=== PATIENT | female | born 1935 | race Caucasian/White ===

== ENCOUNTER 2017-07-05 14:16 | Inpatient (IN) | payer OTHER ==
[~2017-07-05] VITALS: Ht 157.5 cm; Wt 91.7 kg
[~2017-07-05 14:16] MED LIST: ACET-1175 PO; ACET-1256 PO; BISA10SU7 RE; CEPH500C2 PO; CHOL100010 PO; CITA10TA4 PO; CYAN500T PO; DONE10TA12 PO; LEVO50TA PO; MAGNSUS5 PO; NMN5 PO; NTRGSL/4 UT; PRT/20 PO; ROSU20TA PO; SODIENE PR; TRIA0.02 TOP; ZINC20OI TOP
--- NOTE | 2017-07-05 14:59 | EMERGENCY ROOM VISIT NOTE ---
History Report prepared by Annel: Lisandro Gutierrez Under the Supervision of: Dr. Guido Matt M.D. First contact with patient: 14:24 Stated Complaint: LETHARGIC History of Present Illness The patient is a 82 year old female who presents to the Emergency Room with complaints of constant lethargy and fevers since last night. Per the EMS, the patient is usually ambulatory, however not currently. The history is severely limited secondary to limited verbal status. Source of History: nursing staff History Limited By: other (limited verbal status) Onset: prior to arrival Position: other (global) Quality: other (lethargy) Timing: constant Review of Systems HPI is limited secondary to limited verbal status. 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 (14) Osteoporosis Nos (15) Postlaminectomy Synd Nos (16) Sepsis Surgical Problems: (1) Dementia, Unspecified, Without Behavioral Disturbance (2) History of cholecystectomy (3) History of tubal ligation (4) Tubal Ligation Status Social History Smoking Status: Never Smoker Alcohol Use: none Drug Use: none Marital Status: Housing Status: jail Occupation Status: retired Current/Historical Medications Scheduled Bisacodyl (Bisac-Evac), 10 MG RE PRN UD Cholecalciferol (Vitamin D), 1,000 INTER.UNIT PO DAILY Cyanocobalamin (Vitamin B-12), 500 MCG PO DAILY Donepezil Hydrochloride (Donepezil Hcl), 1 TAB PO HS Levothyroxine Sodium (Synthroid), 50 MCG PO DAILY Loratadine (Claritin), 10 MG PO DAILY Memantine (Namenda), 5 MG PO HS Nitroglycerin (Nitrostat), 0.4 MG UT PRN Ranitidine Hcl (Zantac), 150 MG PO DAILY Rosuvastatin Calcium (Crestor), 10 MG PO HS Scheduled PRN Acetaminophen (Tylenol), 650 MG PO Q4H PRN for MILD-SEVERE PAIN Ipratropium-Albuterol (Duoneb), 1 TREATMENT INH Q4H PRN for Shortness of Breath Sodium Phosphate/Biphosphate (Fleet Enema), 1 EA IL DAILY PRN for PRN UD Allergies Coded Allergies: No Known Allergies (Unverified , 07/05/17) Physical Exam Vital Signs Date Time Temp Pulse Resp B/P (MAP) Pulse Ox O2 Delivery O2 Flow Rate FiO2 07/05/17 19:02 38.3 07/05/17 18:30 93 07/05/17 17:04 87 18 138/76 98 Room Air 07/05/17 14:57 95 Nasal Cannula 2.0 07/05/17 14:56 93 22 123/89 95 2.0 07/05/17 14:50 95 Nasal Cannula 2.0 07/05/17 14:30 39.5 99 20 151/86 88 Room Air 07/05/17 14:28 96 Physical Exam GENERAL: Exam limited due to limited verbal status HENT: Dry mucous membranes. Normocephalic, atraumatic. Oropharynx unremarkable. EYES: Normal conjunctiva. Sclera non-icteric. NECK: Supple. No nuchal rigidity. FROM. No JVD. RESPIRATORY: Diminished lung sounds in lung steve throughout. CARDIAC: Regular rate, normal rhythm. Extremities warm and well perfused. Pulses equal. ABDOMEN: Obese. Soft, non-distended. No tenderness to palpation. No rebound or guarding. No masses. RECTAL: Deferred. MUSCULOSKELETAL: Chest examination reveals excoriations of the skin on the left breast which is non tender and not warm. The back is symmetrical on inspection without obvious abnormality. There is no CVA tenderness to palpation. No joint edema. LOWER EXTREMITIES: Mild erythema distally. No warmth or induration. Significant pain with light touch to the left keel. Calves are equal size bilaterally and non-tender. No edema. NEURO: GCS of 14. Normal sensorium. No sensory or motor deficits noted. Patient mumbles but words are understood. SKIN: No rash or jaundice noted. Medical Decision & Procedures ER Provider Diagnostic Interpretation: Radiology results as stated below per my review and radiologist interpretation: CHEST ONE VIEW PORTABLE CLINICAL HISTORY: Chest pain. Possible sepsis. COMPARISON STUDY: Chest radiograph and chest CT July 22, 2016. FINDINGS: Positioning on this exam was difficult. Lung volumes are diminished. Mild left lower lung opacity is noted. There is no lobar consolidation. Mild cardiomegaly is noted without evidence of pulmonary edema. IMPRESSION: 1. Mild left basilar opacity. Atelectasis is favored although an infectious process could appear similar. 2. Diminished lung lungs. 3. Cardiomegaly without evidence of pulmonary edema. Electronically signed by: Solis Clement M.D. 07/05/2017 3:07 PM Dictated Date/Time: 07/05/2017 3:05 PM HEAD WITHOUT CONTRAST (CT) CLINICAL HISTORY: 82 years-old Female with ams. Acute altered mental status TECHNIQUE: Multiple axial CT images of the head were obtained without contrast. A dose lowering technique was utilized adhering to the principles of ALARA. CT DOSE: 1228.53 mGy.cm COMPARISON: CT head 08/05/2014 FINDINGS: Large circumscribed homogeneous CSF attenuating extra-axial collection which appears to originate from the left middle cranial fossa is again seen suggesting an arachnoid cyst, 12.0 x 6.0 cm, stable in size from comparison again causing subfalcine herniation with 9 mm rightward midline shift, unchanged. There is associated sulcal effacement adjacent to the larger mass which is also unchanged. There is likely additional small arachnoid cyst, 2.6 x 1.4 cm abutting the falx and right frontal lobe near the vertex, unchanged. There is no acute intracranial hemorrhage or territorial ischemia. No intra-axial mass identified. There is background moderate atrophy with patchy areas of low attenuation within the cerebral hemispheres bilaterally suggesting chronic microvascular ischemic changes. Calvarium is intact. Mastoid air cells and middle ear cavities are clear. Patient motion limits evaluation of the skull base. Paranasal sinuses appear clear. Soft tissues are unremarkable. IMPRESSION: 1. No acute intracranial abnormality. Negative for hemorrhage or territorial ischemia. 2. 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 3. Background atrophy with chronic microvascular ischemic changes. The above report was generated using voice recognition software. It may contain grammatical, syntax or spelling errors. Electronically signed by: Lisandro Callahan M.D. 07/05/2017 5:02 PM Dictated Date/Time: 07/05/2017 4:56 PM Laboratory Results 07/05/17 14:40 Red Blood Count 4.40, Mean Corpuscular Volume 93.9, Mean Corpuscular Hemoglobin 30.7, Mean Corpuscular Hemoglobin Concent 32.7, Mean Platelet Volume 10.9, Neutrophils (%) (Auto) 84.2, Lymphocytes (%) (Auto) 6.5, Monocytes (%) (Auto) 8.7, Eosinophils (%) (Auto) 0.2, Basophils (%) (Auto) 0.1, Neutrophils # (Auto) 10.60, Lymphocytes # (Auto) 0.82, Monocytes # (Auto) 1.09, Eosinophils # (Auto) 0.02, Basophils # (Auto) 0.01 07/05/17 14:40 Test 07/05/17 14:40 07/05/17 14:50 07/05/17 15:24 07/05/17 17:40 White Blood Count 12.58 K/uL (4.8-10.8) Red Blood Count 4.40 M/uL (4.2-5.4) Hemoglobin 13.5 g/dL (12.0-16.0) Hematocrit 41.3 % (37-47) Mean Corpuscular Volume 93.9 fL (80-100) Mean Corpuscular Hemoglobin 30.7 pg (25-34) Mean Corpuscular Hemoglobin Concent 32.7 g/dl (32-36) Platelet Count 242 K/uL (130-400) Mean Platelet Volume 10.9 fL (7.4-10.4) Neutrophils (%) (Auto) 84.2 % Lymphocytes (%) (Auto) 6.5 % Monocytes (%) (Auto) 8.7 % Eosinophils (%) (Auto) 0.2 % Basophils (%) (Auto) 0.1 % Neutrophils # (Auto) 10.60 K/uL (1.4-6.5) Lymphocytes # (Auto) 0.82 K/uL (1.2-3.4) Monocytes # (Auto) 1.09 K/uL (0.11-0.59) Eosinophils # (Auto) 0.02 K/uL (0-0.5) Basophils # (Auto) 0.01 K/uL (0-0.2) RDW Standard Deviation 49.0 fL (36.4-46.3) RDW Coefficient of Variation 14.2 % (11.5-14.5) Immature Granulocyte % (Auto) 0.3 % Immature Granulocyte # (Auto) 0.04 K/uL (0.00-0.02) Prothrombin Time 11.7 SECONDS (9.0-12.0) Prothromb Time International Ratio 1.1 (0.9-1.1) Anion Gap 7.0 mmol/L (3-11) Est Creatinine Clear Calc Drug Dose 35.6 ml/min Estimated GFR () 44.6 Estimated GFR (Non- 38.4 BUN/Creatinine Ratio 11.9 (10-20) Calcium Level 8.4 mg/dl (8.5-10.1) Total Bilirubin 1.0 mg/dl (0.2-1) Direct Bilirubin 0.3 mg/dl (0-0.2) Aspartate Amino Transf (AST/SGOT) 28 U/L (15-37) Alanine Aminotransferase (ALT/SGPT) 20 U/L (12-78) Alkaline Phosphatase 67 U/L (45-117) Troponin I < 0.015 ng/ml (0-0.045) Pro-B-Type Natriuretic Peptide 518 pg/ml (0-1800) Total Protein 7.2 gm/dl (6.4-8.2) Albumin 2.9 gm/dl (3.4-5.0) Lipase 80 U/L (73-393) Bedside Lactic Acid Venous 1.82 mmol/L (0.90-1.70) Venous Blood pH 7.43 (7.36-7.41) Venous Blood Partial Pressure CO2 44 mmHg (38.0-50.0) Venous Blood Partial Pressure O2 36 mmHg Venous Blood HCO3 28 mmol/L Venous Blood Oxygen Saturation 67.0 % Venous Blood Base Excess 3.2 mEq/L Lactic Acid Level 1.5 mmol/L (0.4-2.0) Urine Color DK YELLOW Urine Appearance CLOUDY (CLEAR) Urine pH 6.5 (4.5-7.5) Urine Specific Ephraim 1.028 (1.000-1.030) Urine Protein 2+ (NEG) Urine Glucose (UA) NEG (NEG) Urine Ketones TRACE (NEG) Urine Occult Blood 2+ (NEG) Urine Nitrite POS (NEG) Urine Bilirubin NEG (NEG) Urine Urobilinogen NEG (NEG) Urine Leukocyte Esterase LARGE (NEG) Urine WBC (Auto) >30 /hpf (0-5) Urine RBC (Auto) 5-10 /hpf (0-4) Urine Hyaline Casts (Auto) 1-5 /lpf (0-5) Urine Epithelial Cells (Auto) 5-10 /lpf (0-5) Urine Bacteria (Auto) 2+ (NEG) Test 07/05/17 19:10 Laboratory results reviewed by me Medications Administered Medications (Trade) Dose Ordered Sig/Jada Route Start Time Stop Time Status Last Admin Dose Admin Sodium Chloride 1,000 ml @ 999 mls/hr Q1H1M STAT IV 07/05/17 16:35 07/05/17 17:35 DC 07/05/17 17:02 999 MLS/HR Piperacillin Sod/ Tazobactam Sod (Zosyn Iv) 4.5 gm NOW STAT IV 07/05/17 16:35 07/05/17 16:40 DC 07/05/17 17:03 4.5 GM Vancomycin HCl 2000 mg/Sodium Chloride 540 ml @ 200 mls/hr ONE STAT IV 07/05/17 16:35 07/05/17 19:16 DC 07/05/17 17:44 200 MLS/HR Sodium Chloride 1,000 ml @ 999 mls/hr Q1H1M STAT IV 07/05/17 17:43 07/05/17 18:43 DC 07/05/17 18:24 999 MLS/HR Sodium Chloride 500 ml @ 999 mls/hr Q31M STAT IV 07/05/17 17:43 07/05/17 18:13 DC 07/05/17 18:24 999 MLS/HR Acetaminophen 1000 mg/Empty Bag 100 ml @ 400 mls/hr NOW STAT IV 07/05/17 18:11 07/05/17 18:25 DC 07/05/17 18:43 400 MLS/HR ECG Indication: other (lethargy) Rate (beats per minute): 91 Rhythm: normal sinus Findings: no acute ischemic change, other ED Course 1424: The patient was evaluated in room A2. A complete history and physical exam was performed. 1635: Vancomycin HCl 2000mg/ Sodium Chloride 540ml @ 200mls/hr IV, Zosyn 4.5gm IV, Sodium Chloride 1000 ml @ 999 mls/hr IV 1738: I reevaluated the patient, and she was resting. 1743: Sodium Chloride 500 ml @ 999 mls/hr IV, Sodium Chloride 1000 ml @ 999 mls/ hr IV 180: I discussed the patient's case with ANGEL Spence, and she is going to evaluate the patient for further treatment. 1810: Acetaminophen 1000mg/ Empty Bag 100ml @ 400mls/hr IV Medical Decision I reviewed the patient's past medical history, medications, and the nursing notes as described above. The patient's presentation and history were concerning for sepsis, infection with urinary, pulmonary, or GI source, stroke, PE, ACS, CHF, pyelonephritis. Patient is an 82 -year-old woman with a past medical history of dementia, hypertension, hyperlipidemia, remote history of SDH who presents to the emergency department from her SNF for fevers and malaise since the evening prior per history of present illness. Arrival the patient is fatigued but follows commands, and has limited verbal ability but able to say basic cords and communicate although mumbled. GCS of 13, Otherwise lungs are diminished throughout. Patient febrile on arrival to 39.5 with heart rate in the 90s. Presentation concerning for early sepsis. Sepsis pathway was initiated. Cultures drawn. EKG unremarkable and troponin negative. Chest x-ray concerning for right upper lobe pneumonia. Leukocytosis. UA grossly positive for infection. She was given empiric antibiotics with vancomycin and Zosyn. Considering unclear baseline mental status CT head was done and was negative for any acute findings. Patient improving with IV fluids and was more alert and HR improved to 80s. Case was discussed with the medicine team will admit the patient to medicine service for further management. Head Trauma GCS Score: 14 Medication Reconcilliation Current Medication List: was personally reviewed by me Blood Pressure Screening Patient's blood pressure: Elevated blood pressure Blood pressure disposition: Elevated BP felt to be situational Consults Time Called: 1800 Consulting Physician: ANGEL Spence Returned Call: [phone] I discussed the patient's case with ANGEL Spence, and she is going to evaluate the patient for further treatment. Impression Primary Impression: Sepsis Additional Impressions: UTI (urinary tract infection) Pneumonia Critical Care I have personally spent greater than 35 minutes of critical care time in the direct management of this patient. This includes bedside care, interpretation of diagnostic studies, and testing, discussion with consultants, patient, and family members, and other required patient management activities. This 35 minutes is in excess of all separately billable procedures. Scribe Attestation The scribe's documentation has been prepared under my direction and personally reviewed by me in its entirety. I confirm that the note above accurately reflects all work, treatment, procedures, and medical decision making performed by me. Departure Information Dispostion Being Evaluated By Hospitalist Referrals Efrain Wilhelm M.D. (PCP) Problem Qualifiers
[2017-07-05 15:06] LABS: BASO % 0.1 %; BASO ABS # 0.01 K/uL (0-0.2); COMPLETE YES; EOS % 0.2 %; HEMATOCRIT 41.3 % (37-47); IG% 0.3 %; LYMPH % 6.5 %; LYMPH ABS # 0.82 K/uL (1.2-3.4); MEAN CELL VOLUME 93.9 fL (80-100); MEAN CORPUSCULAR HEMOGLOBIN 30.7 pg (25-34); MEAN CORPUSCULAR HGB CONC 32.7 g/dl (32-36); MEAN PLATELET VOLUME 10.9 fL (7.4-10.4); MONO % 8.7 %; NEUT % 84.2 %; PLATELET COUNT 242 K/uL (130-400); WHITE BLOOD COUNT 12.58 K/uL (4.8-10.8)
--- NOTE | 2017-07-05 15:08 | DIAGNOSTIC IMAGING REPORT ---
CHEST ONE VIEW PORTABLE CLINICAL HISTORY: Chest pain. Possible sepsis. COMPARISON STUDY: Chest radiograph and chest CT July 22, 2016. FINDINGS: Positioning on this exam was difficult. Lung volumes are diminished. Mild left lower lung opacity is noted. There is no lobar consolidation. Mild cardiomegaly is noted without evidence of pulmonary edema. IMPRESSION: 1. Mild left basilar opacity. Atelectasis is favored although an infectious process could appear similar. 2. Diminished lung lungs. 3. Cardiomegaly without evidence of pulmonary edema. Electronically signed by: Solis Clement M.D. 07/05/2017 3:07 PM Dictated Date/Time: 07/05/2017 3:05 PM
[2017-07-05 15:13] LABS: INR 1.1 (0.9-1.1); PROTHROMBIN TIME (PATIENT) 11.7 SECONDS (9.0-12.0)
[2017-07-05 15:23] LABS: ALT/SGPT 20 U/L (12-78); AST/SGOT 28 U/L (15-37); BLOOD UREA NITROGEN 15 mg/dl (7-18); BUN/CREATININE RATIO 11.9 (10-20); CALCIUM 8.4 mg/dl (8.5-10.1); CARBON DIOXIDE 27 mmol/L (21-32); CHLORIDE 106 mmol/L (98-107); GLUCOSE 120 mg/dl (70-99); POTASSIUM 3.9 mmol/L (3.5-5.1); SODIUM 140 mmol/L (136-145)
[2017-07-05 15:28] LABS: ALKALINE PHOSPHATASE 67 U/L (45-117)
[2017-07-05 15:44] LABS: VEN BLOOD GAS BASE EXCESS 3.2 mEq/L
[2017-07-05] MEDS ORDERED: CLR10 PO (15:53)
[2017-07-05] MEDS ORDERED: IPRASOL4 INH (15:53)
[2017-07-05] MEDS ORDERED: OXGN (15:53)
[2017-07-05] MEDS ORDERED: RANI150T3 PO (15:53)
[2017-07-05] MEDS ORDERED: VANCOMYCIN INJ 2,000 MG in SODIUM CHLORIDE 0.9% 500ML 500 ML IV STA (16:35)
[2017-07-05] MEDS ORDERED: SODIUM CHLORIDE 0.9% 1000ML 1,000 ML IV STA ×2 (16:35→17:43)
[2017-07-05] MEDS ORDERED: PIPERACILLIN/TAZOBACTAM 4.5 GM/100ML D5W IV STA (16:35)
--- NOTE | 2017-07-05 17:03 | DIAGNOSTIC IMAGING REPORT ---
HEAD WITHOUT CONTRAST (CT) CLINICAL HISTORY: 82 years-old Female with ams. Acute altered mental status TECHNIQUE: Multiple axial CT images of the head were obtained without contrast. A dose lowering technique was utilized adhering to the principles of ALARA. CT DOSE: 1228.53 mGy.cm COMPARISON: CT head 08/05/2014 FINDINGS: Large circumscribed homogeneous CSF attenuating extra-axial collection which appears to originate from the left middle cranial fossa is again seen suggesting an arachnoid cyst, 12.0 x 6.0 cm, stable in size from comparison again causing subfalcine herniation with 9 mm rightward midline shift, unchanged. There is associated sulcal effacement adjacent to the larger mass which is also unchanged. There is likely additional small arachnoid cyst, 2.6 x 1.4 cm abutting the falx and right frontal lobe near the vertex, unchanged. There is no acute intracranial hemorrhage or territorial ischemia. No intra-axial mass identified. There is background moderate atrophy with patchy areas of low attenuation within the cerebral hemispheres bilaterally suggesting chronic microvascular ischemic changes. Calvarium is intact. Mastoid air cells and middle ear cavities are clear. Patient motion limits evaluation of the skull base. Paranasal sinuses appear clear. Soft tissues are unremarkable. IMPRESSION: 1. No acute intracranial abnormality. Negative for hemorrhage or territorial ischemia. 2. 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 3. Background atrophy with chronic microvascular ischemic changes. The above report was generated using voice recognition software. It may contain grammatical, syntax or spelling errors. Electronically signed by: Lisandro Callahan M.D. 07/05/2017 5:02 PM Dictated Date/Time: 07/05/2017 4:56 PM
[2017-07-05] MEDS ORDERED: SODIUM CHLORIDE 0.9% 500ML 500 ML IV STA (17:43)
[2017-07-05 17:57] LABS: URINE APPEARANCE CLOUDY (CLEAR); URINE BILIRUBIN NEG (NEG); URINE COLOR DK YELLOW; URINE NITRITE POS (NEG); URINE PH 6.5 (4.5-7.5); URINE SPECIFIC GRAVITY 1.028 (1.000-1.030); UROBILINOGEN NEG (NEG); ZZURINE CULT IF INDIC CATH YES
[2017-07-05 18:00] LABS: MANUAL MICROSCOPIC REQUIRED? NO; REVIEW REQ? NO
[2017-07-05] MEDS ORDERED: ACETAMINOPHEN IV 1,000 MG in EMPTY BAG 0 ML IV STA (18:11)
[2017-07-05] MEDS ORDERED: ACETAMINOPHEN 325 MG TAB PO PRN (18:45)
[2017-07-05] MEDS ORDERED: ONDANSETRON INJ 2 MG/ML 2 ML VIAL IV PRN (18:45)
[2017-07-05] MEDS ORDERED: VANCOMYCIN CONSULT ACTIVE PRN (18:55)
[2017-07-05] MEDS ORDERED: PIPERACILL/TAZOBAC CONSULT ACTIVE PRN (19:00)
[2017-07-05] MEDS ORDERED: DONE1TAB11 PO (19:13)
[2017-07-05] MEDS: SODIUM CHLORIDE 0.9% 1000ML 1,000 ML IV SCH (20:03)
[2017-07-05] MEDS: MEMANTINE 5 MG TAB PO SCH (20:04)
[2017-07-05] MEDS: DONEPEZIL HCL 5 MG TAB PO SCH (20:04)
[2017-07-05] MEDS: ROSUVASTATIN CALCIUM 10 MG TAB PO SCH (20:04)
[2017-07-05 20:08] VITALS: BP 108/69; PULSE 78; TEMP 37; O2SAT 97; Ht 157.5 cm; Wt 91.7 kg
--- NOTE | 2017-07-05 20:24 | Pharmacy Progress Note ---
Pharmacy Abx Initial Consult Date of Service Jul 05, 2017. Pharmacy Dosing Scope Date of Consult: 07/05/17 Consultation requested by: Dr. Zaldivar Pharmacy is consulted to initiate vancomycin/Zosyn IV dosing therapy, order appropriate labs and adjust drug dose/frequency. Subjective The patient is a 82 year old female admitted on Jul 05, 2017 at 18:33. Objective Height (Feet): 5 Height (Inches): 2.00 Weight (Kilograms): 91.000 Vital Signs (Past 12Hrs) Vital Signs Past 12 Hours Date Time Temp Pulse Resp B/P (MAP) Pulse Ox O2 Delivery O2 Flow Rate FiO2 07/05/17 20:08 37.0 78 20 108/69 07/05/17 19:02 38.3 07/05/17 18:30 93 07/05/17 17:04 87 18 138/76 98 Room Air 07/05/17 14:57 95 Nasal Cannula 2.0 07/05/17 14:56 93 22 123/89 95 2.0 07/05/17 14:50 95 Nasal Cannula 2.0 07/05/17 14:30 39.5 99 20 151/86 88 Room Air 07/05/17 14:28 96 Lab Results (24Hrs) Laboratory Tests (24 Hours) Test 07/05/17 14:40 07/05/17 15:24 White Blood Count 12.58 K/uL (4.8-10.8) H Red Blood Count 4.40 M/uL (4.2-5.4) Hemoglobin 13.5 g/dL (12.0-16.0) Hematocrit 41.3 % (37-47) Mean Corpuscular Volume 93.9 fL (80-100) Mean Corpuscular Hemoglobin 30.7 pg (25-34) Mean Corpuscular Hemoglobin Concent 32.7 g/dl (32-36) Platelet Count 242 K/uL (130-400) Mean Platelet Volume 10.9 fL (7.4-10.4) H Neutrophils (%) (Auto) 84.2 % Lymphocytes (%) (Auto) 6.5 % Monocytes (%) (Auto) 8.7 % Eosinophils (%) (Auto) 0.2 % Basophils (%) (Auto) 0.1 % Neutrophils # (Auto) 10.60 K/uL (1.4-6.5) H Lymphocytes # (Auto) 0.82 K/uL (1.2-3.4) L Monocytes # (Auto) 1.09 K/uL (0.11-0.59) H Eosinophils # (Auto) 0.02 K/uL (0-0.5) Basophils # (Auto) 0.01 K/uL (0-0.2) Lactic Acid Level 1.5 mmol/L (0.4-2.0) Micro Results Date/Time Source Procedure Growth Status 07/05/17 14:42 Blood Blood Culture Pending Received 07/05/17 14:40 Blood Blood Culture Pending Received 07/05/17 17:40 Urine,Catheterized Urine Culture Pending Received Risk Factors for Resistance * Resident in a group home or extended-care facility Assessment & Plan Assessment 82 year old female admitted from [facility] with high fever and weakness. Possibly UTI vs HAP. Plan Zosyn/vancomycin for treatment of UTI vs HAP Vancomycin IV * Loading dose: 2000 mg (21.9 mg/kg) * Goal trough level for HAP vs UTI : 15 to 20 mcg/mL * Random level ordered for 07/06/17 * A less than traditional dose and extended dosing interval have been selected due to likelihood of drug accumulation in patient with h/o CKD. Piperacillin/tazobactam * 4.5 g bolus administered over 30 minutes, then 4.5 g IV extended infusion every 8 hours for CrCl greater than 20 mL/min * Aggressive dosing selected due to BMI 35 . Pharmacy will continue to follow and will adjust dose/frequency as necessary. Thank you.
[2017-07-05] MEDS: PIPERACILL/TAZOBAC IV 4.5 GM in DEXTROSE 5% 100ML IV SCH (20:56)
[2017-07-05] MEDS: ALBUT/IPRATROP 3MG/0.5MG NEB 3 ML VIAL INH SCH (21:01)
[2017-07-05 21:02] VITALS: PULSE 74; O2SAT 98
[2017-07-05] MEDS: HEPARIN SOD 5000 UNIT/0.5 ML CARP SQ SCH (21:50)
--- NOTE | 2017-07-05 22:39 | History and Physical ---
History & Physical Date & Time of Service: Jul 05, 2017 ~ 18:15 Chief Complaint: Altered Mental Status, Fever Primary Care Physician: Efrain Wilhelm M.D. History of Present Illness 82 year old female sent to the ED by [facility] for altered mental status and fever. History is unable to be obtained from patient due to her mental status. Per the staff at [facility], when patient woke up this morning she was more confused and lethargic. At baseline she is alert to self only and ambulates with a walker. She also had wheezing and cough and was found to be hypoxic on room air at 84%. This improved with oxygen 3L via NC. She was also febrile. No reported GI symptoms. She was sent to the ED for further evaluation. In the ER, she was hypoxic on room air at 88%, which improved with oxygen 2L via NC. WBC 12K, temp 39.4, mild tachycardia. BP stable. U/A consistent with UTI. CXR showing left base opacity. She was treated with IVF, IV Zosyn, IV Vanco, and IV Tylenol. 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 07/22/16 Status: Chronic Surgical Problems: (1) H/O shoulder surgery Permanent Comment: right Status: Chronic (2) H/O vein stripping Status: Chronic (3) History of cholecystectomy Status: Chronic (4) History of tubal ligation Status: Chronic (5) Status post breast reduction Status: Chronic Family History non contributory due to patient's advanced age Social History Smoking Status: Former Smoker Drug Use: none Housing status: alf Immunizations History of Influenza Vaccine: Yes Influenza Vaccine Date: Jul 24, 2013 History of Tetanus Vaccine?: Yes Tetanus Immunization Date: Nov 14, 2012 History of Pneumococcal: Yes Pneumococcal Date: Feb 24, 2009 Multi-Drug Resistant Organisms History of MDRO: Yes Type of MDRO: MRSA Allergies Coded Allergies: No Known Allergies (Unverified , 07/05/17) Home Medications Scheduled Bisacodyl (Bisac-Evac), 10 MG RE PRN UD Cholecalciferol (Vitamin D), 1,000 INTER.UNIT PO DAILY Cyanocobalamin (Vitamin B-12), 500 MCG PO DAILY Donepezil Hydrochloride (Donepezil Hcl), 1 TAB PO HS Levothyroxine Sodium (Synthroid), 50 MCG PO DAILY Loratadine (Claritin), 10 MG PO DAILY Memantine (Namenda), 5 MG PO HS Nitroglycerin (Nitrostat), 0.4 MG UT PRN Ranitidine Hcl (Zantac), 150 MG PO DAILY Rosuvastatin Calcium (Crestor), 10 MG PO HS Scheduled PRN Acetaminophen (Tylenol), 650 MG PO Q4H PRN for MILD-SEVERE PAIN Ipratropium-Albuterol (Duoneb), 1 TREATMENT INH Q4H PRN for Shortness of Breath Sodium Phosphate/Biphosphate (Fleet Enema), 1 EA [place] DAILY PRN for PRN UD Review of Systems unable to be completed with patient due to mental status Physical Exam Vital Signs Date Time Temp Pulse Resp B/P (MAP) Pulse Ox O2 Delivery O2 Flow Rate FiO2 07/05/17 21:02 74 18 98 Nasal Cannula 2.0 07/05/17 20:08 37.0 78 20 108/69 97 Nasal Cannula 2.0 07/05/17 19:02 38.3 07/05/17 18:30 93 07/05/17 17:04 87 18 138/76 98 Room Air 07/05/17 14:57 95 Nasal Cannula 2.0 07/05/17 14:56 93 22 123/89 95 2.0 07/05/17 14:50 95 Nasal Cannula 2.0 07/05/17 14:30 39.5 99 20 151/86 88 Room Air 07/05/17 14:28 96 General Appearance: no apparent distress (lethargic, unable to converse, responds to verbal stimuli) Head: normocephalic, atraumatic Eyes: normal inspection, sclerae normal ENT: hearing grossly normal Neck: supple, no JVD Respiratory/Chest: no respiratory distress, + decreased breath sounds Cardiovascular: regular rate, rhythm, no edema, normal peripheral pulses Abdomen/GI: normal bowel sounds, non tender, soft Extremities/Musculoskelatal: normal inspection, no calf tenderness Neurologic/Psych: + pertinent finding (lethargic, arouses to verbal stimuli, no gross focal deficits noted) Skin: normal color, warm/dry Diagnostics Laboratory Results Results Past 24 Hours Test 07/05/17 14:40 07/05/17 14:45 07/05/17 14:50 07/05/17 15:24 Range/Units White Blood Count 12.58 4.8-10.8 K/uL Red Blood Count 4.40 4.2-5.4 M/uL Hemoglobin 13.5 12.0-16.0 g/dL Hematocrit 41.3 37-47 % Mean Corpuscular Volume 93.9 80-100 fL Mean Corpuscular Hemoglobin 30.7 25-34 pg Mean Corpuscular Hemoglobin Concent 32.7 32-36 g/dl Platelet Count 242 130-400 K/uL Mean Platelet Volume 10.9 7.4-10.4 fL Neutrophils (%) (Auto) 84.2 % Lymphocytes (%) (Auto) 6.5 % Monocytes (%) (Auto) 8.7 % Eosinophils (%) (Auto) 0.2 % Basophils (%) (Auto) 0.1 % Neutrophils # (Auto) 10.60 1.4-6.5 K/uL Lymphocytes # (Auto) 0.82 1.2-3.4 K/uL Monocytes # (Auto) 1.09 0.11-0.59 K/uL Eosinophils # (Auto) 0.02 0-0.5 K/uL Basophils # (Auto) 0.01 0-0.2 K/uL RDW Standard Deviation 49.0 36.4-46.3 fL RDW Coefficient of Variation 14.2 11.5-14.5 % Immature Granulocyte % (Auto) 0.3 % Immature Granulocyte # (Auto) 0.04 0.00-0.02 K/uL Prothrombin Time 11.7 9.0-12.0 SECONDS Prothromb Time International Ratio 1.1 0.9-1.1 Sodium Level 140 136-145 mmol/L Potassium Level 3.9 3.5-5.1 mmol/L Chloride Level 106 98-107 mmol/L Carbon Dioxide Level 27 21-32 mmol/L Anion Gap 7.0 3-11 mmol/L Blood Urea Nitrogen 15 7-18 mg/dl Creatinine 1.30 0.60-1.20 mg/dl Est Creatinine Clear Calc Drug Dose 35.6 ml/min Estimated GFR () 44.6 Estimated GFR (Non- 38.4 BUN/Creatinine Ratio 11.9 10-20 Random Glucose 120 70-99 mg/dl Calcium Level 8.4 8.5-10.1 mg/dl Total Bilirubin 1.0 0.2-1 mg/dl Direct Bilirubin 0.3 0-0.2 mg/dl Aspartate Amino Transf (AST/SGOT) 28 15-37 U/L Alanine Aminotransferase (ALT/SGPT) 20 12-78 U/L Alkaline Phosphatase 67 45-117 U/L Troponin I < 0.015 0-0.045 ng/ml Pro-B-Type Natriuretic Peptide 518 0-1800 pg/ml Total Protein 7.2 6.4-8.2 gm/dl Albumin 2.9 3.4-5.0 gm/dl Lipase 80 73-393 U/L Thyroid Stimulating Hormone (TSH) 0.679 0.300-4.500 uIu/ml Bedside Lactic Acid Venous 1.80 1.82 0.90-1.70 mmol/L Venous Blood pH 7.43 7.36-7.41 Venous Blood Partial Pressure CO2 44 38.0-50.0 mmHg Venous Blood Partial Pressure O2 36 mmHg Venous Blood HCO3 28 mmol/L Venous Blood Oxygen Saturation 67.0 % Venous Blood Base Excess 3.2 mEq/L Lactic Acid Level 1.5 0.4-2.0 mmol/L Test 07/05/17 17:40 Range/Units Urine Color DK YELLOW Urine Appearance CLOUDY CLEAR Urine pH 6.5 4.5-7.5 Urine Specific [place] 1.028 1.000-1.030 Urine Protein 2+ NEG Urine Glucose (UA) NEG NEG Urine Ketones TRACE NEG Urine Occult Blood 2+ NEG Urine Nitrite POS NEG Urine Bilirubin NEG NEG Urine Urobilinogen NEG NEG Urine Leukocyte Esterase LARGE NEG Urine WBC (Auto) >30 0-5 /hpf Urine RBC (Auto) 5-10 0-4 /hpf Urine Hyaline Casts (Auto) 1-5 0-5 /lpf Urine Epithelial Cells (Auto) 5-10 0-5 /lpf Urine Bacteria (Auto) 2+ NEG Microbiology Results 07/05/17 Blood Culture, Received Pending 07/05/17 Blood Culture, Received Pending 07/05/17 Urine Culture, Received Pending Diagnostic Radiology CXR IMPRESSION: 1. Mild left basilar opacity. Atelectasis is favored although an infectious process could appear similar. 2. Diminished lung lungs. 3. Cardiomegaly without evidence of pulmonary edema. HEAD CT IMPRESSION: 1. No acute intracranial abnormality. Negative for hemorrhage or territorial ischemia. 2. 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 3. Background atrophy with chronic microvascular ischemic changes. Impression Assessment and Plan SEPSIS DUE TO UTI, HCAP METABOLIC ENCEPHALOPATHY DUE TO SEPSIS ACUTE HYPOXIC RESPIRATORY FAILURE - admit to tele - patient presenting from [facility] with altered mental status and fever; in the ED, U/A consistent with UTI and CXR showing left base opacity - WBC 12.5K, tachycardic (HR in the 90s), febrile, hypoxic; normal lactic acid, BP stable - saturating well on 2L NC; give nebs - CT head negative for acute findings - will keep NPO until more alert - s/p Vanco and Zosyn in the ED; will continue with to cover for HCAP and hx of +MRSA nasal swab - urine and blood cultures DEMENTIA - continue Aricept and Namenda HYPOTHYROIDISM - TSH WNL - continue levothyroxine DVT PROPHYLAXIS - SQ Heparin CODE STATUS - Patient is a full code without mechanical ventilation as per my discussion with patient's daughter and Kristen COPELAND. Addendum: I have seen and examined the patient and agree with the assessment and plan above. DO Guillermo DISPO - In my clinical judgment this beneficiary meets acute admission criteria, established by [facility], that includes being hospitalized through two midnights. - case management, PT/OT; expect d/c back to [facility] once medically stable VTE Prophylaxis VTE Risk Assessment Done? Y/N: Yes Risk Level: Moderate
[2017-07-06] VITALS (10 sets, daily range): BP systolic 108–131; BP diastolic 63–87; PULSE 73–94; TEMP 36.5–38; O2SAT 92–98
[2017-07-06] MEDS: LEVOTHYROXINE 50 MCG TAB PO SCH (06:00)
[2017-07-06] MEDS: SODIUM CHLORIDE 0.9% 1000ML 1,000 ML IV SCH (06:24)
[2017-07-06] MEDS: PIPERACILL/TAZOBAC IV 4.5 GM in DEXTROSE 5% 100ML IV SCH ×3 (06:24→21:13)
[2017-07-06] MEDS: HEPARIN SOD 5000 UNIT/0.5 ML CARP SQ SCH ×3 (06:25→20:31)
[2017-07-06 06:47] LABS: HEMATOCRIT 35.9 % (37-47); MEAN CELL VOLUME 94.7 fL (80-100); MEAN CORPUSCULAR HEMOGLOBIN 29.6 pg (25-34); MEAN CORPUSCULAR HGB CONC 31.2 g/dl (32-36); MEAN PLATELET VOLUME 10.7 fL (7.4-10.4); PLATELET COUNT 189 K/uL (130-400); RED BLOOD COUNT 3.79 M/uL (4.2-5.4); WHITE BLOOD COUNT 8.84 K/uL (4.8-10.8)
[2017-07-06 07:21] LABS: BUN/CREATININE RATIO 12.7 (10-20); CALCIUM 7.4 mg/dl (8.5-10.1); CREATININE 1.1 mg/dl (0.60-1.20); POTASSIUM 3.6 mmol/L (3.5-5.1)
[2017-07-06] MEDS: ALBUT/IPRATROP 3MG/0.5MG NEB 3 ML VIAL INH SCH ×4 (07:29→19:12)
--- NOTE | 2017-07-06 09:07 | Pharmacy Progress Note ---
Pharmacy Abx Dose Short Note Date of Service Jul 06, 2017. Assessment & Plan Assessment 82 year old female receiving vancomycin for treatment of HAP/UTI Day # 2 of antimicrobial therapy. Plan Vancomycin * Random level of 9.6, subtherapeutic * Start maintenance dose of 1250 mg q24- less aggressive due to possibility of accumulation with BMI > 35 * Goal trough level 15-20 mcg/mL * Trough ordered for 07/08 @ 0730 Pharmacy will continue to follow and will adjust dose/frequency as necessary. Thank you.
--- NOTE | 2017-07-06 09:14 | Progress Note ---
Internal Med Progress Note Date of Service: Jul 06, 2017. Provider Documentation: SUBJECTIVE: Seen and examined at bedside Seemed to be comfortable lying in bed Has intermittent cough Denies chest pain, SOB More alert, awake Follows simple commands OBJECTIVE: Vital Signs-as noted below Physical Exam: Vitals signs as noted above General Appearance:Obese, no apparent distress Head: normocephalic, Atraumatic Eyes: normal inspection, EOMI, PERRL Neck: supple, Trachea midline Respiratory/Chest: Normal breath sounds, CTA Cardiovascular: S1, S2, No murmur Abdomen/GI:Soft, Non tender, Bowel sounds present Extremities/Musculoskelatal:normal inspection, no edema Neurologic/Psych:grossly no focal neurological deficits Skin: normal color, warm Lab data as noted below. ASSESSMENT & PLAN: Sepsis UTI, HCAP Metabolic Encephalopathy Acute Hypoxic respiratory failure Patient presented from [facility] with AMS, fever, UA consistent with UTI and CXR showing left base opacity Leukocytosis improved Saturating well with minimal Oxygen support Wean off oxygen as able CT head negative for acute findings Continue Vanco and Zosyn Day #2 H/O positive MRSA nasal swab Blood/Urine cultures pending Clear liquid diet, advance as tolerated Dementia continue Aricept and Namenda Hypothyroidism TSH normal continue levothyroxine DVT Px SQ Heparin CODE STATUS full code without mechanical ventilation Disposition: Plan to discharge to [facility] when medically stable Vital Signs: Date Time Temp Pulse Resp B/P (MAP) Pulse Ox O2 Delivery O2 Flow Rate FiO2 07/06/17 07:32 36.7 85 18 128/83 (98) 95 07/06/17 07:29 75 18 98 Nasal Cannula 0.5 07/06/17 06:00 36.6 07/06/17 04:00 Nasal Cannula 2.0 07/06/17 03:44 37.7 76 18 108/70 (83) 97 Nasal Cannula 2.0 07/06/17 00:04 36.5 73 20 117/76 (90) 97 Nasal Cannula 2.0 07/05/17 23:59 Nasal Cannula 2.0 07/05/17 21:02 74 18 98 Nasal Cannula 2.0 07/05/17 20:08 37.0 78 20 108/69 97 Nasal Cannula 2.0 07/05/17 19:02 38.3 07/05/17 18:30 93 07/05/17 17:04 87 18 138/76 98 Room Air 07/05/17 14:57 95 Nasal Cannula 2.0 07/05/17 14:56 93 22 123/89 95 2.0 07/05/17 14:50 95 Nasal Cannula 2.0 07/05/17 14:30 39.5 99 20 151/86 88 Room Air 07/05/17 14:28 96 Lab Results: Results Past 24 Hours Test 07/05/17 14:40 07/05/17 14:45 07/05/17 14:50 07/05/17 15:24 Range/Units White Blood Count 12.58 4.8-10.8 K/uL Red Blood Count 4.40 4.2-5.4 M/uL Hemoglobin 13.5 12.0-16.0 g/dL Hematocrit 41.3 37-47 % Mean Corpuscular Volume 93.9 80-100 fL Mean Corpuscular Hemoglobin 30.7 25-34 pg Mean Corpuscular Hemoglobin Concent 32.7 32-36 g/dl Platelet Count 242 130-400 K/uL Mean Platelet Volume 10.9 7.4-10.4 fL Neutrophils (%) (Auto) 84.2 % Lymphocytes (%) (Auto) 6.5 % Monocytes (%) (Auto) 8.7 % Eosinophils (%) (Auto) 0.2 % Basophils (%) (Auto) 0.1 % Neutrophils # (Auto) 10.60 1.4-6.5 K/uL Lymphocytes # (Auto) 0.82 1.2-3.4 K/uL Monocytes # (Auto) 1.09 0.11-0.59 K/uL Eosinophils # (Auto) 0.02 0-0.5 K/uL Basophils # (Auto) 0.01 0-0.2 K/uL RDW Standard Deviation 49.0 36.4-46.3 fL RDW Coefficient of Variation 14.2 11.5-14.5 % Immature Granulocyte % (Auto) 0.3 % Immature Granulocyte # (Auto) 0.04 0.00-0.02 K/uL Prothrombin Time 11.7 9.0-12.0 SECONDS Prothromb Time International Ratio 1.1 0.9-1.1 Sodium Level 140 136-145 mmol/L Potassium Level 3.9 3.5-5.1 mmol/L Chloride Level 106 98-107 mmol/L Carbon Dioxide Level 27 21-32 mmol/L Anion Gap 7.0 3-11 mmol/L Blood Urea Nitrogen 15 7-18 mg/dl Creatinine 1.30 0.60-1.20 mg/dl Est Creatinine Clear Calc Drug Dose 35.6 ml/min Estimated GFR () 44.6 Estimated GFR (Non- 38.4 BUN/Creatinine Ratio 11.9 10-20 Random Glucose 120 70-99 mg/dl Calcium Level 8.4 8.5-10.1 mg/dl Total Bilirubin 1.0 0.2-1 mg/dl Direct Bilirubin 0.3 0-0.2 mg/dl Aspartate Amino Transf (AST/SGOT) 28 15-37 U/L Alanine Aminotransferase (ALT/SGPT) 20 12-78 U/L Alkaline Phosphatase 67 45-117 U/L Troponin I < 0.015 0-0.045 ng/ml Pro-B-Type Natriuretic Peptide 518 0-1800 pg/ml Total Protein 7.2 6.4-8.2 gm/dl Albumin 2.9 3.4-5.0 gm/dl Lipase 80 73-393 U/L Thyroid Stimulating Hormone (TSH) 0.679 0.300-4.500 uIu/ml Bedside Lactic Acid Venous 1.80 1.82 0.90-1.70 mmol/L Venous Blood pH 7.43 7.36-7.41 Venous Blood Partial Pressure CO2 44 38.0-50.0 mmHg Venous Blood Partial Pressure O2 36 mmHg Venous Blood HCO3 28 mmol/L Venous Blood Oxygen Saturation 67.0 % Venous Blood Base Excess 3.2 mEq/L Lactic Acid Level 1.5 0.4-2.0 mmol/L Test 07/05/17 17:40 07/06/17 05:50 Range/Units Urine Color DK YELLOW Urine Appearance CLOUDY CLEAR Urine pH 6.5 4.5-7.5 Urine Specific [place] 1.028 1.000-1.030 Urine Protein 2+ NEG Urine Glucose (UA) NEG NEG Urine Ketones TRACE NEG Urine Occult Blood 2+ NEG Urine Nitrite POS NEG Urine Bilirubin NEG NEG Urine Urobilinogen NEG NEG Urine Leukocyte Esterase LARGE NEG Urine WBC (Auto) >30 0-5 /hpf Urine RBC (Auto) 5-10 0-4 /hpf Urine Hyaline Casts (Auto) 1-5 0-5 /lpf Urine Epithelial Cells (Auto) 5-10 0-5 /lpf Urine Bacteria (Auto) 2+ NEG White Blood Count 8.84 4.8-10.8 K/uL Red Blood Count 3.79 4.2-5.4 M/uL Hemoglobin 11.2 12.0-16.0 g/dL Hematocrit 35.9 37-47 % Mean Corpuscular Volume 94.7 80-100 fL Mean Corpuscular Hemoglobin 29.6 25-34 pg Mean Corpuscular Hemoglobin Concent 31.2 32-36 g/dl RDW Standard Deviation 50.2 36.4-46.3 fL RDW Coefficient of Variation 14.5 11.5-14.5 % Platelet Count 189 130-400 K/uL Mean Platelet Volume 10.7 7.4-10.4 fL Sodium Level 143 136-145 mmol/L Potassium Level 3.6 3.5-5.1 mmol/L Chloride Level 112 98-107 mmol/L Carbon Dioxide Level 26 21-32 mmol/L Anion Gap 5.0 3-11 mmol/L Blood Urea Nitrogen 14 7-18 mg/dl Creatinine 1.10 0.60-1.20 mg/dl Est Creatinine Clear Calc Drug Dose 42.9 ml/min Estimated GFR () 54.5 Estimated GFR (Non- 47.0 BUN/Creatinine Ratio 12.7 10-20 Random Glucose 90 70-99 mg/dl Calcium Level 7.4 8.5-10.1 mg/dl Random Vancomycin Level 9.6 mcg/ml Microbiology Results 07/05/17 Blood Culture, Received Pending 07/05/17 Blood Culture, Received Pending 07/05/17 Urine Culture, Received Pending
[2017-07-06] MEDS: CHOLECALCIFEROL 1000 INTER.UNIT TAB PO SCH (09:25)
[2017-07-06] MEDS: RANITIDINE HCL 150 MG TAB PO SCH (09:25)
[2017-07-06] MEDS: CYANOCOBALAMIN 500 MCG TAB (VIT B-12) PO SCH (09:25)
[2017-07-06] MEDS: LORATADINE 10 MG TAB PO SCH (09:25)
[2017-07-06] MEDS: VANCOMYCIN INJ 1,250 MG in SODIUM CHLORIDE 0.9% 250ML 250 ML IV SCH (10:27)
[2017-07-06] MEDS: MEMANTINE 5 MG TAB PO SCH (20:29)
[2017-07-06] MEDS: DONEPEZIL HCL 5 MG TAB PO SCH (20:29)
[2017-07-06] MEDS: ROSUVASTATIN CALCIUM 10 MG TAB PO SCH (20:29)
[2017-07-07] VITALS (9 sets, daily range): BP systolic 109–174; BP diastolic 64–81; PULSE 67–87; TEMP 36.8–37; O2SAT 91–98
[2017-07-07] MEDS: SODIUM CHLORIDE 0.9% 1000ML 1,000 ML IV SCH (05:16)
[2017-07-07] MEDS: LEVOTHYROXINE 50 MCG TAB PO SCH (05:44)
[2017-07-07] MEDS: PIPERACILL/TAZOBAC IV 4.5 GM in DEXTROSE 5% 100ML IV SCH ×3 (05:44→21:45)
[2017-07-07] MEDS: HEPARIN SOD 5000 UNIT/0.5 ML CARP SQ SCH ×3 (05:45→21:11)
[2017-07-07 06:18] LABS: BASO % 0.3 %; BASO ABS # 0.02 K/uL (0-0.2); COMPLETE YES; EOS % 3.6 %; HEMATOCRIT 33.8 % (37-47); IG% 0.3 %; LYMPH % 15.2 %; LYMPH ABS # 0.94 K/uL (1.2-3.4); MEAN CELL VOLUME 93.4 fL (80-100); MEAN CORPUSCULAR HEMOGLOBIN 29.3 pg (25-34); MEAN CORPUSCULAR HGB CONC 31.4 g/dl (32-36); MEAN PLATELET VOLUME 10.8 fL (7.4-10.4); MONO % 13.3 %; NEUT % 67.3 %; PLATELET COUNT 215 K/uL (130-400); RED BLOOD COUNT 3.62 M/uL (4.2-5.4); WHITE BLOOD COUNT 6.18 K/uL (4.8-10.8)
[2017-07-07 06:48] LABS: BUN/CREATININE RATIO 9.2 (10-20); CALCIUM 7.3 mg/dl (8.5-10.1); POTASSIUM 3.3 mmol/L (3.5-5.1)
[2017-07-07] MEDS: ALBUT/IPRATROP 3MG/0.5MG NEB 3 ML VIAL INH SCH ×4 (07:10→18:54)
[2017-07-07] MEDS: VANCOMYCIN INJ 1,250 MG in SODIUM CHLORIDE 0.9% 250ML 250 ML IV SCH (08:16)
[2017-07-07] MEDS: LORATADINE 10 MG TAB PO SCH (09:12)
[2017-07-07] MEDS: RANITIDINE HCL 150 MG TAB PO SCH (09:12)
[2017-07-07] MEDS: CYANOCOBALAMIN 500 MCG TAB (VIT B-12) PO SCH (09:12)
[2017-07-07] MEDS: CHOLECALCIFEROL 1000 INTER.UNIT TAB PO SCH (09:12)
--- NOTE | 2017-07-07 10:41 | Progress Note ---
Internal Med Progress Note Date of Service: Jul 07, 2017. Provider Documentation: SUBJECTIVE: Seen and examined at bedside More alert, awake Has intermittent cough Denies chest pain, SOB, abd pain, dizziness No other complaints OBJECTIVE: Vital Signs-as noted below Physical Exam: Vitals signs as noted above General Appearance:Obese, no apparent distress Head: normocephalic, Atraumatic Eyes: normal inspection, EOMI, PERRL Neck: supple, Trachea midline Respiratory/Chest: Normal breath sounds, CTA Cardiovascular: S1, S2, No murmur Abdomen/GI:Soft, Non tender, Bowel sounds present Extremities/Musculoskelatal:normal inspection, no edema Neurologic/Psych:grossly no focal neurological deficits Skin: normal color, warm Lab data as noted below. ASSESSMENT & PLAN: Sepsis UTI, HCAP Metabolic Encephalopathy: resolved Acute Hypoxic respiratory failure: resolved Patient presented from [facility] with AMS, fever, UA consistent with UTI and CXR showing left base opacity Leukocytosis resolved Saturating well on room air CT head negative for acute findings Continue Vanco and Zosyn Day # 3 H/O positive MRSA nasal swab Blood culture: No growth Urine culture: Proteus Hypokalemia: Will replace and monitor Dementia continue Aricept and Namenda Hypothyroidism TSH normal continue levothyroxine DVT Px SQ Heparin CODE STATUS full code without mechanical ventilation Disposition: Plan to discharge to [facility] when medically stable Vital Signs: Date Time Temp Pulse Resp B/P (MAP) Pulse Ox O2 Delivery O2 Flow Rate FiO2 07/07/17 08:03 36.8 72 18 129/64 (85) 96 07/07/17 08:00 Room Air 07/07/17 07:35 72 16 93 Room Air 07/07/17 04:00 Room Air 07/07/17 03:23 36.8 78 20 109/72 (84) 94 Room Air 07/06/17 23:59 Room Air 07/06/17 23:29 36.7 73 18 108/69 (82) 96 Room Air 07/06/17 20:00 Room Air 07/06/17 19:22 37.3 85 20 124/79 (94) 93 Room Air 07/06/17 19:13 83 16 93 Room Air 07/06/17 16:00 Nasal Cannula 07/06/17 15:54 78 16 94 Room Air 07/06/17 15:54 38.0 94 20 131/87 (102) 92 Room Air 07/06/17 12:00 Nasal Cannula 2.0 07/06/17 11:38 36.9 85 16 118/63 (81) 95 Lab Results: Results Past 24 Hours Test 07/07/17 05:38 Range/Units White Blood Count 6.18 4.8-10.8 K/uL Red Blood Count 3.62 4.2-5.4 M/uL Hemoglobin 10.6 12.0-16.0 g/dL Hematocrit 33.8 37-47 % Mean Corpuscular Volume 93.4 80-100 fL Mean Corpuscular Hemoglobin 29.3 25-34 pg Mean Corpuscular Hemoglobin Concent 31.4 32-36 g/dl Platelet Count 215 130-400 K/uL Mean Platelet Volume 10.8 7.4-10.4 fL Neutrophils (%) (Auto) 67.3 % Lymphocytes (%) (Auto) 15.2 % Monocytes (%) (Auto) 13.3 % Eosinophils (%) (Auto) 3.6 % Basophils (%) (Auto) 0.3 % Neutrophils # (Auto) 4.16 1.4-6.5 K/uL Lymphocytes # (Auto) 0.94 1.2-3.4 K/uL Monocytes # (Auto) 0.82 0.11-0.59 K/uL Eosinophils # (Auto) 0.22 0-0.5 K/uL Basophils # (Auto) 0.02 0-0.2 K/uL RDW Standard Deviation 48.5 36.4-46.3 fL RDW Coefficient of Variation 14.2 11.5-14.5 % Immature Granulocyte % (Auto) 0.3 % Immature Granulocyte # (Auto) 0.02 0.00-0.02 K/uL Sodium Level 143 136-145 mmol/L Potassium Level 3.3 3.5-5.1 mmol/L Chloride Level 110 98-107 mmol/L Carbon Dioxide Level 27 21-32 mmol/L Anion Gap 6.0 3-11 mmol/L Blood Urea Nitrogen 9 7-18 mg/dl Creatinine 1.00 0.60-1.20 mg/dl Est Creatinine Clear Calc Drug Dose 47.1 ml/min Estimated GFR () 61.2 Estimated GFR (Non- 52.8 BUN/Creatinine Ratio 9.2 10-20 Random Glucose 86 70-99 mg/dl Calcium Level 7.3 8.5-10.1 mg/dl
[2017-07-07] MEDS ORDERED: POTASSIUM CHLORIDE 10 MEQ TABCR PO ONE (10:45)
[2017-07-07] MEDS: DONEPEZIL HCL 5 MG TAB PO SCH (21:12)
[2017-07-07] MEDS: ROSUVASTATIN CALCIUM 10 MG TAB PO SCH (21:12)
[2017-07-07] MEDS: MEMANTINE 5 MG TAB PO SCH (21:12)
[2017-07-08] VITALS (12 sets, daily range): BP systolic 110–139; BP diastolic 72–86; PULSE 66–79; TEMP 36.6–36.9; O2SAT 93–99
[2017-07-08] MEDS: SODIUM CHLORIDE 0.9% 1000ML 1,000 ML IV SCH (05:27)
[2017-07-08] MEDS: PIPERACILL/TAZOBAC IV 4.5 GM in DEXTROSE 5% 100ML IV SCH ×3 (05:28→21:48)
[2017-07-08] MEDS: HEPARIN SOD 5000 UNIT/0.5 ML CARP SQ SCH ×3 (05:44→21:45)
[2017-07-08] MEDS: LEVOTHYROXINE 50 MCG TAB PO SCH (05:54)
[2017-07-08] MEDS: ALBUT/IPRATROP 3MG/0.5MG NEB 3 ML VIAL INH SCH ×4 (06:58→19:07)
[2017-07-08] MEDS ORDERED: VANCOMYCIN TROUGH ONE (07:30)
[2017-07-08 07:37] LABS: MEAN CELL VOLUME 93.6 fL (80-100); MEAN CORPUSCULAR HEMOGLOBIN 29.9 pg (25-34); MEAN PLATELET VOLUME 9.8 fL (7.4-10.4); PLATELET COUNT 247 K/uL (130-400); RED BLOOD COUNT 3.74 M/uL (4.2-5.4); WHITE BLOOD COUNT 5.75 K/uL (4.8-10.8)
[2017-07-08 08:05] LABS: BUN/CREATININE RATIO 5.9 (10-20); CALCIUM 8.2 mg/dl (8.5-10.1); CREATININE 0.83 mg/dl (0.60-1.20); POTASSIUM 3.6 mmol/L (3.5-5.1)
[2017-07-08] MEDS: LORATADINE 10 MG TAB PO SCH (09:22)
[2017-07-08] MEDS: RANITIDINE HCL 150 MG TAB PO SCH (09:22)
[2017-07-08] MEDS: VANCOMYCIN INJ 1,250 MG in SODIUM CHLORIDE 0.9% 250ML 250 ML IV SCH (09:22)
[2017-07-08] MEDS: CYANOCOBALAMIN 500 MCG TAB (VIT B-12) PO SCH (09:23)
[2017-07-08] MEDS: CHOLECALCIFEROL 1000 INTER.UNIT TAB PO SCH (09:23)
--- NOTE | 2017-07-08 10:31 | Progress Note ---
Internal Med Progress Note Date of Service: Jul 08, 2017. Provider Documentation: SUBJECTIVE: Seen and examined at bedside States feeling well Mental status seems to be back to baseline Denies chest pain, SOB, abd pain, dizziness No other complaints OBJECTIVE: Vital Signs-as noted below Physical Exam: Vitals signs as noted above General Appearance:Obese, no apparent distress Head: normocephalic, Atraumatic Eyes: normal inspection, EOMI, PERRL Neck: supple, Trachea midline Respiratory/Chest: Normal breath sounds, CTA Cardiovascular: S1, S2, No murmur Abdomen/GI:Soft, Non tender, Bowel sounds present Extremities/Musculoskelatal:normal inspection, no edema Neurologic/Psych:grossly no focal neurological deficits Skin: normal color, warm Lab data as noted below. ASSESSMENT & PLAN: Sepsis UTI, HCAP Metabolic Encephalopathy: resolved Acute Hypoxic respiratory failure: resolved Patient presented from [facility] with AMS, fever, UA consistent with UTI and CXR showing left base opacity Leukocytosis resolved Saturating well on room air CT head negative for acute findings Continue Vanco day # 3 and Zosyn Day # 4 DC Vanco H/O positive MRSA nasal swab Blood culture: No growth Urine culture: Proteus: pansensitive Hypokalemia: monitor Dementia continue Aricept and Namenda Hypothyroidism TSH normal continue levothyroxine DVT Px SQ Heparin CODE STATUS full code without mechanical ventilation Disposition: Plan to discharge to [facility] when medically stable Vital Signs: Date Time Temp Pulse Resp B/P (MAP) Pulse Ox O2 Delivery O2 Flow Rate FiO2 07/08/17 08:00 Room Air 07/08/17 07:38 36.9 74 17 124/75 (91) 93 Room Air 07/08/17 07:26 79 16 93 Room Air 07/08/17 04:00 Room Air 07/08/17 04:00 36.8 73 19 139/86 (103) 96 Nasal Cannula 07/08/17 00:00 36.9 70 19 120/77 (91) 96 Room Air 07/07/17 23:59 Room Air 07/07/17 20:00 Room Air 07/07/17 19:30 37.0 77 20 174/80 (111) 98 Room Air 07/07/17 18:55 71 16 91 Room Air 07/07/17 16:00 Room Air 07/07/17 15:53 36.8 74 20 138/81 (100) 95 Room Air 07/07/17 14:37 87 16 94 Room Air 07/07/17 12:00 Room Air 07/07/17 11:20 67 16 94 Room Air 07/07/17 11:12 36.8 72 18 117/73 (88) 98 Lab Results: Results Past 24 Hours Test 07/08/17 07:18 Range/Units White Blood Count 5.75 4.8-10.8 K/uL Red Blood Count 3.74 4.2-5.4 M/uL Hemoglobin 11.2 12.0-16.0 g/dL Hematocrit 35.0 37-47 % Mean Corpuscular Volume 93.6 80-100 fL Mean Corpuscular Hemoglobin 29.9 25-34 pg Mean Corpuscular Hemoglobin Concent 32.0 32-36 g/dl RDW Standard Deviation 48.1 36.4-46.3 fL RDW Coefficient of Variation 14.1 11.5-14.5 % Platelet Count 247 130-400 K/uL Mean Platelet Volume 9.8 7.4-10.4 fL Sodium Level 143 136-145 mmol/L Potassium Level 3.6 3.5-5.1 mmol/L Chloride Level 111 98-107 mmol/L Carbon Dioxide Level 25 21-32 mmol/L Anion Gap 7.0 3-11 mmol/L Blood Urea Nitrogen 5 7-18 mg/dl Creatinine 0.83 0.60-1.20 mg/dl Est Creatinine Clear Calc Drug Dose 56.0 ml/min Estimated GFR () 76.6 Estimated GFR (Non- 66.1 BUN/Creatinine Ratio 5.9 10-20 Random Glucose 92 70-99 mg/dl Calcium Level 8.2 8.5-10.1 mg/dl Vancomycin Level Trough 8.7 SEE COMMENT mcg/ml
[2017-07-08] MEDS: DONEPEZIL HCL 5 MG TAB PO SCH (21:46)
[2017-07-08] MEDS: ROSUVASTATIN CALCIUM 10 MG TAB PO SCH (21:47)
[2017-07-08] MEDS: MEMANTINE 5 MG TAB PO SCH (21:48)
[2017-07-09] VITALS (9 sets, daily range): BP systolic 107–112; BP diastolic 69–74; PULSE 62–72; TEMP 36.8–37.5; O2SAT 91–97
[2017-07-09] MEDS: PIPERACILL/TAZOBAC IV 4.5 GM in DEXTROSE 5% 100ML IV SCH ×3 (06:20→20:52)
[2017-07-09] MEDS: LEVOTHYROXINE 50 MCG TAB PO SCH (06:21)
[2017-07-09] MEDS: HEPARIN SOD 5000 UNIT/0.5 ML CARP SQ SCH ×3 (06:25→22:09)
[2017-07-09 06:40] LABS: CALCIUM 8.2 mg/dl (8.5-10.1); CREATININE 0.96 mg/dl (0.60-1.20); POTASSIUM 3.3 mmol/L (3.5-5.1)
[2017-07-09] MEDS: ALBUT/IPRATROP 3MG/0.5MG NEB 3 ML VIAL INH SCH ×3 (07:04→19:26)
[2017-07-09] MEDS: CYANOCOBALAMIN 500 MCG TAB (VIT B-12) PO SCH (10:21)
[2017-07-09] MEDS: LORATADINE 10 MG TAB PO SCH (10:21)
[2017-07-09] MEDS: RANITIDINE HCL 150 MG TAB PO SCH (10:22)
[2017-07-09] MEDS: CHOLECALCIFEROL 1000 INTER.UNIT TAB PO SCH (10:22)
[2017-07-09] MEDS ORDERED: POTASSIUM CHLORIDE 10 MEQ TABCR PO ONE (12:45)
--- NOTE | 2017-07-09 12:55 | Progress Note ---
Internal Med Progress Note Date of Service: Jul 09, 2017. Provider Documentation: SUBJECTIVE: Seen and examined at bedside Currently having lunch Reports some abdominal discomfort Had no BM today Denies chest pain, SOB, abd pain, dizziness No other complaints OBJECTIVE: Vital Signs-as noted below Physical Exam: Vitals signs as noted above General Appearance:Obese, no apparent distress Head: normocephalic, Atraumatic Eyes: normal inspection, EOMI, PERRL Neck: supple, Trachea midline Respiratory/Chest: Normal breath sounds, CTA Cardiovascular: S1, S2, No murmur Abdomen/GI:Soft, Non tender, Bowel sounds present Extremities/Musculoskelatal:normal inspection, no edema Neurologic/Psych:grossly no focal neurological deficits Skin: normal color, warm Lab data as noted below. ASSESSMENT & PLAN: Sepsis UTI, HCAP Metabolic Encephalopathy: resolved Acute Hypoxic respiratory failure: resolved Patient presented from [facility] with AMS, fever, UA consistent with UTI and CXR showing left base opacity Leukocytosis resolved Saturating well on room air CT head negative for acute findings Continue Vanco day # 3 and Zosyn Day # 5>> Plan to switch to PO tomorrow DC Vanco H/O positive MRSA nasal swab Blood culture: No growth Urine culture: Proteus: pansensitive Hypokalemia: replace and monitor Dementia continue Aricept and Namenda Hypothyroidism TSH normal continue levothyroxine Abdominal discomfort: Likely constipation PRN Miralax DVT Px SQ Heparin CODE STATUS full code without mechanical ventilation Disposition: Plan to discharge to [facility] when medically stable Vital Signs: Date Time Temp Pulse Resp B/P (MAP) Pulse Ox O2 Delivery O2 Flow Rate FiO2 07/09/17 11:37 37.2 65 18 108/72 (84) 94 07/09/17 10:09 Room Air 07/09/17 07:39 36.9 68 20 107/73 (84) 07/09/17 07:07 62 16 94 Room Air 07/09/17 05:00 36.9 72 18 112/74 (87) 93 Room Air 07/09/17 00:40 Room Air 07/08/17 23:28 36.7 76 18 110/80 (90) 93 Room Air 07/08/17 19:48 36.7 75 20 126/82 (97) 99 Room Air 07/08/17 19:40 Room Air 07/08/17 19:07 68 16 94 Room Air 07/08/17 15:07 36.7 74 20 119/79 (92) 98 Room Air 07/08/17 14:19 72 16 95 Room Air Lab Results: Results Past 24 Hours Test 07/09/17 05:22 Range/Units Sodium Level 144 136-145 mmol/L Potassium Level 3.3 3.5-5.1 mmol/L Chloride Level 111 98-107 mmol/L Carbon Dioxide Level 27 21-32 mmol/L Anion Gap 6.0 3-11 mmol/L Blood Urea Nitrogen 5 7-18 mg/dl Creatinine 0.96 0.60-1.20 mg/dl Est Creatinine Clear Calc Drug Dose 48.4 ml/min Estimated GFR () 64.3 Estimated GFR (Non- 55.5 BUN/Creatinine Ratio 5.0 10-20 Random Glucose 87 70-99 mg/dl Calcium Level 8.2 8.5-10.1 mg/dl
[2017-07-09] MEDS ORDERED: POLYETHYLENE (MIRALAX) 17 GM PACK PO PRN (13:00)
[2017-07-09] MEDS: ROSUVASTATIN CALCIUM 10 MG TAB PO SCH (20:32)
[2017-07-09] MEDS: MEMANTINE 5 MG TAB PO SCH (20:32)
[2017-07-09] MEDS: DONEPEZIL HCL 5 MG TAB PO SCH (20:32)
[2017-07-10] VITALS (8 sets, daily range): BP systolic 106–130; BP diastolic 67–84; PULSE 61–76; TEMP 36.7–36.9; O2SAT 92–94
[2017-07-10 05:58] LABS: BASO % 0.3 %; BASO ABS # 0.02 K/uL (0-0.2); COMPLETE YES; EOS % 3.9 %; HEMATOCRIT 37.2 % (37-47); IG% 1.4 %; LYMPH % 18.5 %; LYMPH ABS # 1.45 K/uL (1.2-3.4); MEAN CELL VOLUME 94.2 fL (80-100); MEAN CORPUSCULAR HEMOGLOBIN 29.6 pg (25-34); MEAN CORPUSCULAR HGB CONC 31.5 g/dl (32-36); MEAN PLATELET VOLUME 10.2 fL (7.4-10.4); MONO % 7.8 %; NEUT % 68.1 %; PLATELET COUNT 332 K/uL (130-400); RED BLOOD COUNT 3.95 M/uL (4.2-5.4); WHITE BLOOD COUNT 7.85 K/uL (4.8-10.8)
[2017-07-10] MEDS: PIPERACILL/TAZOBAC IV 4.5 GM in DEXTROSE 5% 100ML IV SCH (06:00)
[2017-07-10] MEDS: LEVOTHYROXINE 50 MCG TAB PO SCH (06:00)
[2017-07-10] MEDS: HEPARIN SOD 5000 UNIT/0.5 ML CARP SQ SCH (06:04)
[2017-07-10 06:27] LABS: BUN/CREATININE RATIO 5.3 (10-20); CREATININE 1.1 mg/dl (0.60-1.20); POTASSIUM 3.7 mmol/L (3.5-5.1)
[2017-07-10] MEDS: ALBUT/IPRATROP 3MG/0.5MG NEB 3 ML VIAL INH SCH ×3 (07:04→15:27)
[2017-07-10] MEDS: LORATADINE 10 MG TAB PO SCH (07:49)
[2017-07-10] MEDS: CHOLECALCIFEROL 1000 INTER.UNIT TAB PO SCH (07:49)
[2017-07-10] MEDS: RANITIDINE HCL 150 MG TAB PO SCH (07:49)
[2017-07-10] MEDS: CYANOCOBALAMIN 500 MCG TAB (VIT B-12) PO SCH (07:50)
--- NOTE | 2017-07-10 10:58 | Progress Note ---
Internal Med Progress Note Date of Service: Jul 10, 2017. Provider Documentation: SUBJECTIVE: Seen and examined at bedside Feels well today Denies chest pain, SOB, abd pain, dizziness No other complaints OBJECTIVE: Vital Signs-as noted below Physical Exam: Vitals signs as noted above General Appearance:Obese, no apparent distress Head: normocephalic, Atraumatic Eyes: normal inspection, EOMI, PERRL Neck: supple, Trachea midline Respiratory/Chest: Normal breath sounds, CTA Cardiovascular: S1, S2, No murmur Abdomen/GI:Soft, Non tender, Bowel sounds present Extremities/Musculoskelatal:normal inspection, no edema Neurologic/Psych:grossly no focal neurological deficits Skin: normal color, warm Lab data as noted below. ASSESSMENT & PLAN: Sepsis UTI, HCAP Metabolic Encephalopathy: resolved Acute Hypoxic respiratory failure: resolved Patient presented from [facility] with AMS, fever, UA consistent with UTI and CXR showing left base opacity Leukocytosis resolved Saturating well on room air CT head negative for acute findings Continue Vanco day # 3 and Zosyn Day # 5>> Plan to switch to PO Abx today DC Vanco H/O positive MRSA nasal swab Blood culture: No growth Urine culture: Proteus: pansensitive Hypokalemia: Resolved monitor Dementia continue Aricept and Namenda Hypothyroidism TSH normal continue levothyroxine Abdominal discomfort: Likely constipation PRN Miralax DVT Px SQ Heparin CODE STATUS full code without mechanical ventilation Disposition: Plan to discharge to [facility] today Follow up with Primary care physician in 1 week after being discharged from [facility] Complete the antibiotic course as prescribed Seek immediate medical attention if your symptoms reoccur or worsen Vital Signs: Date Time Temp Pulse Resp B/P (MAP) Pulse Ox O2 Delivery O2 Flow Rate FiO2 07/10/17 08:00 94 Room Air 07/10/17 07:07 36.9 73 16 130/84 (99) 94 Room Air 07/10/17 07:06 65 16 92 Room Air 07/10/17 04:37 36.7 67 19 107/68 (81) 92 Room Air 07/10/17 00:15 Room Air 07/10/17 00:04 36.9 76 19 106/67 (80) 94 Room Air 07/09/17 21:14 Room Air 07/09/17 19:30 63 16 97 Room Air 07/09/17 19:25 37.5 72 18 109/73 (85) 91 Room Air 07/09/17 16:01 93 Room Air 07/09/17 15:22 66 16 93 Room Air 07/09/17 14:42 36.8 64 18 109/69 (82) 92 07/09/17 11:37 37.2 65 18 108/72 (84) 94 Lab Results: Results Past 24 Hours Test 07/10/17 05:14 Range/Units White Blood Count 7.85 4.8-10.8 K/uL Red Blood Count 3.95 4.2-5.4 M/uL Hemoglobin 11.7 12.0-16.0 g/dL Hematocrit 37.2 37-47 % Mean Corpuscular Volume 94.2 80-100 fL Mean Corpuscular Hemoglobin 29.6 25-34 pg Mean Corpuscular Hemoglobin Concent 31.5 32-36 g/dl Platelet Count 332 130-400 K/uL Mean Platelet Volume 10.2 7.4-10.4 fL Neutrophils (%) (Auto) 68.1 % Lymphocytes (%) (Auto) 18.5 % Monocytes (%) (Auto) 7.8 % Eosinophils (%) (Auto) 3.9 % Basophils (%) (Auto) 0.3 % Neutrophils # (Auto) 5.35 1.4-6.5 K/uL Lymphocytes # (Auto) 1.45 1.2-3.4 K/uL Monocytes # (Auto) 0.61 0.11-0.59 K/uL Eosinophils # (Auto) 0.31 0-0.5 K/uL Basophils # (Auto) 0.02 0-0.2 K/uL RDW Standard Deviation 49.1 36.4-46.3 fL RDW Coefficient of Variation 14.2 11.5-14.5 % Immature Granulocyte % (Auto) 1.4 % Immature Granulocyte # (Auto) 0.11 0.00-0.02 K/uL Sodium Level 142 136-145 mmol/L Potassium Level 3.7 3.5-5.1 mmol/L Chloride Level 109 98-107 mmol/L Carbon Dioxide Level 26 21-32 mmol/L Anion Gap 7.0 3-11 mmol/L Blood Urea Nitrogen 6 7-18 mg/dl Creatinine 1.10 0.60-1.20 mg/dl Est Creatinine Clear Calc Drug Dose 42.3 ml/min Estimated GFR () 54.5 Estimated GFR (Non- 47.0 BUN/Creatinine Ratio 5.3 10-20 Random Glucose 90 70-99 mg/dl Calcium Level 9.0 8.5-10.1 mg/dl
[2017-07-10] MEDS ORDERED: CEFU500T16 PO (11:19)
--- NOTE | 2017-07-10 11:24 | Discharge Summary ---
Discharge Summary Date of Service Jul 10, 2017. Discharge Summary Admission Date: Jul 05, 2017 at 18:33 Discharge Date: Jul 10, 2017 Discharge Disposition: senior care facility Principal Diagnosis: Sepsis, UTI, HCAP Procedures: CT head: 1. No acute intracranial abnormality. Negative for hemorrhage or territorial ischemia. 2. 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 3. Background atrophy with chronic microvascular ischemic changes. CXR: 1. Mild left basilar opacity. Atelectasis is favored although an infectious process could appear similar. 2. Diminished lung lungs. 3. Cardiomegaly without evidence of pulmonary edema. Consultations: None Pending Studies/Follow-Up: Follow up with Primary care physician in 1 week after being discharged from [facility] Complete the antibiotic course as prescribed Seek immediate medical attention if your symptoms reoccur or worsen Medication Reconciliation New Medications: Cefuroxime Axetil (Ceftin) 500 Mg Tab 500 MG PO BID for 5 Days, #10 TAB Continued Medications: Acetaminophen (Tylenol) 325 Mg Tab 650 MG PO Q4H PRN for MILD-SEVERE PAIN, TAB PT MAY REFUSE/OK TO HOLD IF PT IS SLEEPING MAX 3GM APAP/24 HOURS Bisacodyl (Bisac-Evac) 10 Mg Sup 10 MG RE PRN UD PRN 1 TIME DAILY IF MILK OF MAG INEFFECTIVE, DAY 5 Cholecalciferol (Vitamin D) 1,000 Inter.unit Tab 1000 INTER.UNIT PO DAILY, TAB Cyanocobalamin (Vitamin B-12) 500 Mcg Tab 500 MCG PO DAILY, TAB Donepezil Hydrochloride (Donepezil Hcl) 5 Mg Tab 1 TAB PO HS for 30 Days, TAB 5 Refills Ipratropium-Albuterol (Duoneb) 3 Ml Nebu 1 TREATMENT INH Q4H PRN for Shortness of Breath, INHA Levothyroxine Sodium (Synthroid) 50 Mcg Tab 50 MCG PO DAILY, TAB Loratadine (Claritin) 10 Mg Tab 10 MG PO DAILY, TAB Memantine (Namenda) 5 Mg Tab 5 MG PO HS, TAB Nitroglycerin (Nitrostat) 0.4 Mg Tab 0.4 MG UT PRN, BTL Ranitidine Hcl (Zantac) 150 Mg Tab 150 MG PO DAILY, TAB Rosuvastatin Calcium (Crestor) 20 Mg Tab 10 MG PO HS, TAB Sodium Phosphate/Biphosphate (Fleet Enema) Romi 1 EA ID DAILY PRN for PRN UD, BTL IF DULCOLAX SUPP NOT EFFECTIVE, ON DAY 6 Admission Information HPI (per Admitting provider): 82 year old female sent to the ED by [facility] for altered mental status and fever. History is unable to be obtained from patient due to her mental status. Per the staff at [facility], when patient woke up this morning she was more confused and lethargic. At baseline she is alert to self only and ambulates with a walker. She also had wheezing and cough and was found to be hypoxic on room air at 84%. This improved with oxygen 3L via NC. She was also febrile. No reported GI symptoms. She was sent to the ED for further evaluation. In the ER, she was hypoxic on room air at 88%, which improved with oxygen 2L via NC. WBC 12K, temp 39.4, mild tachycardia. BP stable. U/A consistent with UTI. CXR showing left base opacity. She was treated with IVF, IV Zosyn, IV Vanco, and IV Tylenol. Physical Exam (per Admitting): General Appearance: no apparent distress (lethargic, unable to converse, responds to verbal stimuli) Head: normocephalic, atraumatic Eyes: normal inspection, sclerae normal ENT: hearing grossly normal Neck: supple, no JVD Respiratory/Chest: no respiratory distress, + decreased breath sounds Cardiovascular: regular rate, rhythm, no edema, normal peripheral pulses Abdomen/GI: normal bowel sounds, non tender, soft Extremities/Musculoskelatal: normal inspection, no calf tenderness Neurologic/Psych: + pertinent finding (lethargic, arouses to verbal stimuli , no gross focal deficits noted) Skin: normal color, warm/dry Hospital Course Sepsis UTI, HCAP Metabolic Encephalopathy: resolved Acute Hypoxic respiratory failure: resolved Patient presented from [facility] with AMS, fever, UA consistent with UTI and CXR showing left base opacity Leukocytosis resolved Saturating well on room air CT head negative for acute findings Continue Vanco day # 3 and Zosyn Day # 5>> Plan to switch to PO Abx today DC Vanco H/O positive MRSA nasal swab Blood culture: No growth Urine culture: Proteus: pansensitive Hypokalemia: Resolved monitor Dementia continue Aricept and Namenda Hypothyroidism TSH normal continue levothyroxine Abdominal discomfort: Likely constipation PRN Miralax DVT Px SQ Heparin CODE STATUS full code without mechanical ventilation Disposition: Plan to discharge to [facility] today Follow up with Primary care physician in 1 week after being discharged from [facility] Complete the antibiotic course as prescribed Seek immediate medical attention if your symptoms reoccur or worsen Total time spent on discharge = 32 minutes This includes examination of the patient, discharge planning, medication reconciliation, and communication with other providers. Discharge Instructions Discharge Instructions Date of Service Jul 10, 2017. Admission Reason for Admission: Sepsis Discharge Discharge Diagnosis / Problem: Sepsis, UTI, HCAP Discharge Goals Goal(s): Decrease discomfort, Improve function Activity Recommendations Activity Limitations: resume your previous activity Exercise/Sports Limitations: as tolerated . Instructions / Follow-Up Instructions / Follow-Up Follow up with Primary care physician in 1 week after being discharged from [facility] Complete the antibiotic course as prescribed Seek immediate medical attention if your symptoms reoccur or worsen Current Hospital Diet Patient's current hospital diet: AHA Diet (Heart Healthy) Discharge Diet Recommended Diet: AHA Diet (Heart Healthy) Pending Studies Studies pending at discharge: no Medical Emergencies . Who to Call and When: Medical Emergencies: If at any time you feel your situation is an emergency, please call 911 immediately. . Non-Emergent Contact Non-Emergency issues call your: Primary Care Provider Call Non-Emergent contact if: you have a fever, your pain is not controlled, your pain is worsening, your pain is unusual for you, your pain is concerning you, you have any medication questions Seek immediate medical attention if your symptoms reoccur or worsen . . "Provider Documentation" section prepared by Nathan Celaya. . VTE Core Measure Inpt VTE Proph given/why not?: Unfractionated heparin SQ
[2017-07-10] MEDS ORDERED: NURSING VERBAL MED ORDER ONE (11:30)
[2017-07-10] MEDS ORDERED: NEOMYCIN/POLYMYX/BACITR OINT 15 GM TUBE EXT SCH (20:00)
== END 2017-07-10 14:15 | DRG 871 ==
LOC: EDBD 14:16 → C.EDA 14:18 → C.2T 18:33 → EDBEDREQ 18:41 → ENRESERV 18:45 → C.4E 07-08 11:48
PROVIDERS: ADMIT Hospitalist; ATTEND Internal Medicine
DX: A41.9 Sepsis, unspecified organism (principal); J18.9 Pneumonia, unspecified organism; G93.41 Metabolic encephalopathy; J96.01 Acute respiratory failure with hypoxia; N39.0 Urinary tract infection, site not specified; A49.8 Other bacterial infections of unspecified site; F03.90 Unspecified dementia, unspecified severity, without behavioral disturbance, psychotic disturbance, mood disturbance, and anxiety; F32.9 Major depressive disorder, single episode, unspecified; E78.5 Hyperlipidemia, unspecified; K21.9 Gastro-esophageal reflux disease without esophagitis; E87.6 Hypokalemia; E03.9 Hypothyroidism, unspecified; I10 Essential (primary) hypertension; M81.0 Age-related osteoporosis without current pathological fracture; Z86.718 Personal history of other venous thrombosis and embolism; Z98.51 Tubal ligation status; Z86.14 Personal history of Methicillin resistant Staphylococcus aureus infection; Z87.891 Personal history of nicotine dependence